=== PATIENT | female | born 1970 | race Caucasian/White ===

== ENCOUNTER → 2017-06-20 | Outpatient (CLI) | payer OTHER | LOC: LAB 13:42 → LAB SHORT 13:42 | PROVIDERS: Registered Nurse Community Health | DX: Z12.4 Encounter for screening for malignant neoplasm of cervix (principal) | CPT/HCPCS: 87624; G0123 ==

== ENCOUNTER → 2018-08-12 | Outpatient (CLI) | payer OTHER | LOC: LAB SHORT 18:40 → LAB EV 18:40 | DX: N89.8 Other specified noninflammatory disorders of vagina (principal) | CPT/HCPCS: 87070; 87205 ==

== ENCOUNTER → 2020-11-25 | Outpatient (CLI) | payer OTHER | END | disposition home or self-care (01) | LOC: LAB SHORT 07:30 | DX: K21.9 Gastro-esophageal reflux disease without esophagitis (principal) | CPT/HCPCS: 87338 ==

== ENCOUNTER → 2022-07-02 | Outpatient (CLI) | payer OTHER ==
[~2022-07-02] MED LIST: Aspir 8181 MG PO; LAMO100 PO; Nolvadex20 MG PO; OMEP20ER PO; TRAZ100 PO
== END ==
LOC: LAB 09:30 → LAB SHORT 09:30 → EDSTATUS 06-21 14:25 → LAB FUT 06-21 14:25
DX: K44.9 Diaphragmatic hernia without obstruction or gangrene (principal); K21.9 Gastro-esophageal reflux disease without esophagitis
CPT/HCPCS: 87338

== ENCOUNTER 2022-09-06 15:58 | Emergency (ER) | payer OTHER ==
[~2022-09-06] VITALS: Ht 157.5 cm; Wt 60.8 kg
[2022-09-06 16:35] LABS: BASOPHILS ABSOLUTE AUTO 0.03 K/mm3 (0.00-0.23); BASOPHILS PERCENT AUTO 0 % (0-2); EOSINOPHILS ABSOLUTE AUTO 0.08 K/mm3 (0.00-0.68); EOSINOPHILS PERCENT AUTO 1 % (0-6); Hematocrit 41.5 % (33.0-51.0); Hemoglobin 14.1 g/dL (11.5-16.0); IMMATURE GRAN ABSOLUTE AUTO 0.04 K/mm3 (0.00-0.10); IMMATURE GRAN PERCENT AUTO 1 % (0-1); LYMPHOCYTES PERCENT AUTO 17 % (21-46); MONOCYTES ABSOLUTE AUTO 0.66 K/mm3 (0.16-1.47); MONOCYTES PERCENT AUTO 9 % (4-13); Mean Corpuscular HGB 30.1 pg (26.0-34.0); Mean Corpuscular Volume 89 fL (80-100); Mean Platelet Volume 9.7 fL (9.1-12.4); NEUTROPHILS ABSOLUTE AUTO 5.05 K/mm3 (1.96-9.15); NEUTROPHILS PERCENT AUTO 72 % (41-73); Platelet Count 285 K/mm3 (150-400); RDW Coefficient Variation 11.9 % (11.7-14.2); RDW Standard Deviation 38.4 fL (35.1-46.3); Red Blood Cell Count 4.68 M/mm3 (3.80-5.20); White Blood Cell Count 7.06 K/mm3 (4.00-11.30)
[2022-09-06 17:09] LABS: Albumin, Blood 3.7 g/dL (3.4-5.0); Albumin/Globulin Ratio 0.9 (0.8-1.8); Bilirubin, Total 0.3 mg/dL (0.1-1.0); Calcium, Blood 9.2 mg/dL (8.5-10.1); Creatinine, Blood 0.67 mg/dL (0.40-1.00); Potassium, Blood 3.7 mmol/L (3.5-5.5); Total Protein, Blood 7.7 g/dL (6.4-8.2)
[2022-09-06] MEDS ORDERED: AZIT250 PO (20:18)
[2022-09-06 20:30] VITALS: BP 115/81
== END 2022-09-06 20:39 | disposition home or self-care (01) ==
LOC: ER 15:58
PROVIDERS: Emergency Medicine
DX: J18.9 Pneumonia, unspecified organism (principal); R07.81 Pleurodynia; R06.02 Shortness of breath; Z79.82 Long term (current) use of aspirin; Z79.899 Other long term (current) drug therapy
CPT/HCPCS: 71046; 71101; 71260; 80053; 83690; 83880; 84484; 85025; 93005; 93010; 96374-59; 99284-25; A9270; J1885; Q9967

== ENCOUNTER 2024-02-19 04:33 | Emergency (ER) | payer OTHER ==
[~2024-02-19] VITALS: Ht 167.6 cm; Wt 61.2 kg
[~2024-02-19 04:33] MED LIST changes: +AZIT250 PO
[2024-02-19 04:38] VITALS: BP 125/86
[2024-02-19 05:22] LABS: CORONAVIRUS COVID-19 AG Negative (NEGATIVE); INFLUENZA A AG Negative (NEGATIVE); INFLUENZA B AG Negative (NEGATIVE)
== END 2024-02-19 06:06 | disposition left against medical advice (07) ==
LOC: ER 04:33
PROVIDERS: Emergency Medicine
DX: R53.1 Weakness (principal); N23 Unspecified renal colic; Z53.21 Procedure and treatment not carried out due to patient leaving prior to being seen by health care provider
CPT/HCPCS: 87428-QW

== ENCOUNTER → 2024-06-06 | Outpatient (CLI) | payer OTHER ==
[2024-06-08 18:25] LABS: CALPROTECTIN,FECAL 30 ug/g (<=49)
== END ==
LOC: LAB 07:30 → LAB SHORT 07:30
PROVIDERS: Family Medicine
DX: R10.9 Unspecified abdominal pain (principal); R14.0 Abdominal distension (gaseous)
CPT/HCPCS: 83993; 87338

== ENCOUNTER → 2024-11-24 | Outpatient (CLI) | payer OTHER ==
[2024-11-24 19:19] LABS: Bacterial Vaginosis PCR Negative (NEGATIVE); Candida Group, PCR NOT DETECTED (NOT DETECT); Candida glabrata-krusei, PCR NOT DETECTED (NOT DETECT)
== END ==
LOC: LAB 12:29 → LAB SHORT 12:29
PROVIDERS: Family Medicine
DX: Z01.419 Encounter for gynecological examination (general) (routine) without abnormal findings (principal); N89.8 Other specified noninflammatory disorders of vagina
CPT/HCPCS: 81515; 87624; G0145